=== PATIENT | female | born 1985 | race American Indian/Alaskan Native ===

== ENCOUNTER 2022-02-07 06:20 | Inpatient (IN) | payer MEDICAID, OTHER ==
[2022-02-05 12:58] LABS: Hemoglobin 9.8 gm/dl (10.1-14.3); Mean Corpuscular HGB Conc 33 % (30-34); Mean Corpuscular Volume 74 fl (79-97); Platelet Count 228 K/mm3 (140-440); Red Blood Count 4.07 M/mm3 (3.65-5.03); Red Cell Distribution Width 18.7 % (13.2-15.2)
[2022-02-05 13:17] LABS: BUN/Creatinine Ratio 15; Blood Urea Nitrogen 9 mg/dL (7-17); Calcium 8.9 mg/dL (8.4-10.2); Hemolysis Index 0
--- NOTE | 2022-02-07 09:11 | History and Physical Report ---
History of Present Illness Date of examination: 02/07/22 Date of admission: 02/07/22 08:50 Chief complaint: elective repeat section Previous c/sectionx2 Multiparity: desires surgical sterilization Past History Past Medical History: other (GDM,morbid obesity) Past Surgical History: section Social history: no significant social history - Obstetrical History Expected Date of Delivery: 02/13/22 Actual Gestation: 39 Week(s) 1 Day(s) : 3 Para: 2 Medications and Allergies Allergies Allergy/AdvReac Type Severity Reaction Status Date / Time No Known Allergies Allergy Verified 02/01/22 17:05 Home Medications Medication Instructions Recorded Confirmed Last Taken Type Aspirin [Adult Aspirin] 81 mg PO DAILY 02/01/22 02/01/22 Unknown History Valacyclovir HCl [Valacyclovir] 1,000 mg PO DAILY 02/01/22 02/01/22 Unknown History Ibuprofen [Motrin] 600 mg PO Q8H PRN #60 tablet 02/07/22 Unknown Rx oxyCODONE /ACETAMINOPHEN [Percocet 1 tab PO Q6HR PRN #20 tablet 02/07/22 Unkn own Rx 5/325] Review of Systems All systems: negative - Vital Signs Vital signs: Vital Signs Temp Pulse Resp BP Pulse Ox 97.9 F 91 H 20 125/86 99 02/05/22 12:40 02/05/22 12:40 02/05/22 12:40 02/05/22 12:40 02/05/22 12:40 Temp Pulse Resp BP Pulse Ox 97.9 F 91 H 20 125/86 99 02/05/22 12:40 02/05/22 12:40 02/05/22 12:40 02/05/22 12:40 02/05/22 12:40 - Physical Exam Breasts: Positive: deferred Cardiovascular: Regular rate Lungs: Positive: Clear to auscultation Abdomen: Positive: normal appearance, soft, normal bowel sounds Genitourinary (Female): Positive: normal external genitalia, normal perenium Vulva: both: normal Vagina: Positive: normal moisture Uterus: Positive: enlarged Anus/Rectum: Positive: normal perianal skin Deep Tendon Reflex Grade: Normal +2 - Obstetrical FHR: category 1 Results Result Diagrams: 02/07/22 09:22 02/05/22 12:40 All other labs normal. 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
[2022-02-07] MEDS ORDERED: FAMOTIDINE 20 MG/2 ML INJ IV SCH (09:30)
[2022-02-07] MEDS ORDERED: METOCLOPRAMIDE 10 MG/2 ML INJ IV SCH (09:30)
[2022-02-07] MEDS ORDERED: BICITRA ORAL LIQD 30ML PO SCH (09:30)
[2022-02-07] MEDS: LACTATED RINGERS 1,000 ML IV SCH ×2 (09:36→11:05)
[2022-02-07 10:00] LABS: Basophils % (Auto) 0.4 % (0.0-1.8); Eosinophils % (Auto) 0.4 % (0.0-4.3); Hemoglobin 9.9 gm/dl (10.1-14.3); Lymphocytes # (Auto) 1.6 K/mm3 (1.2-5.4); Mean Corpuscular HGB Conc 32 % (30-34); Mean Corpuscular Volume 74 fl (79-97); Monocytes # (Auto) 0.4 K/mm3 (0.0-0.8); Platelet Count 222 K/mm3 (140-440); Red Blood Count 4.21 M/mm3 (3.65-5.03); Red Cell Distribution Width 19.4 % (13.2-15.2)
[2022-02-07] MEDS ORDERED: METHYLERGONOVINE MALEATE 0.2 MG/ML VIAL IM PRN (10:00)
[2022-02-07] MEDS ORDERED: OXYTOCIN DRIP 30 UNITS/500 ML BAG IV SCH (10:00)
[2022-02-07] MEDS ORDERED: ACETAMINOPHEN 325 MG TAB PO PRN (10:00)
[2022-02-07] MEDS ORDERED: fentaNYL 100 MCG/2 ML INJ IV PRN (10:00)
[2022-02-07] MEDS ORDERED: OXYTOCIN 10 UNIT/1 ML INJ IM PRN (10:00)
[2022-02-07] MEDS ORDERED: miSOPROStol 200 MCG TAB PR PRN (10:00)
[2022-02-07] MEDS ORDERED: NALOXONE 0.4 MG/1 ML INJ IV PRN ×2 (10:00→13:01)
[2022-02-07] MEDS ORDERED: PROMETHAZINE 25 MG TAB PO PRN (10:00)
[2022-02-07] MEDS ORDERED: BUTORPHANOL 2 MG/1 ML INJ IV PRN ×2 (10:00)
[2022-02-07] MEDS ORDERED: LOPERAMIDE 2 MG CAP PO PRN (10:00)
[2022-02-07] MEDS ORDERED: LIDOCAINE (2%) 20 MG/1 ML VIAL 20 ML MDV INFILTRATI SCH (10:00)
[2022-02-07] MEDS ORDERED: NalbUPHINE 10 MG/1 ML INJ IV PRN (10:00)
[2022-02-07] MEDS ORDERED: CARBOPROST TROMETHAMINE 250 MCG/1 ML INJ IM PRN (10:00)
[2022-02-07] MEDS ORDERED: SODIUM CHLORIDE 0.9% 500 ML 500 ML IV SCH (10:00)
[2022-02-07] MEDS ORDERED: MINERAL OIL 30 ML ORAL LIQD PO PRN (10:00)
[2022-02-07] MEDS ORDERED: ePHEDrine SULFATE 50 MG/1 ML INJ IV PRN (10:00)
--- NOTE | 2022-02-07 11:42 | Procedure Note ---
OB Delivery Note - Delivery Date of Delivery: 02/07/22 Surgeon: JERILYN HONG - Section Preop diagnosis: desires sterilization Postop diagnosis: same section procedure: repeat low transverse, bilateral tubal ligation Disposition: PACU Complications: none Narrative: Preop diagnosis: IUP at 39.1 weeks, previous section x2 desiring elective repeat, Multiparity desiring permanent surgical sterilization Postop diagnosis: Same,delivered Procedure: Repeat low transverse section via Pfannenstiel incision with Mofied Ngozi Bilateral Tubal ligation Surgeon: Dr. Jerilyn Hong Anesthesia spinal Complications none EBL 500ml IV fluids 1100mL Urine output 25mL, clear Drains Ruth to gravity Findings: Viable male with weight 2690gms and 8/9, normal uterus tubes and ovaries bilaterally Procedure: Patient was consented in OB triage, taken to the operating room where she received excellent spinal anesthesia. She was then placed in the dorsal supine position with a leftward tilt. The abdomen was prepped and draped in a sterile fashion, and a timeout was verified. Adequate anesthesia was confirmed prior to the skin incision. A Pfannenstiel skin incision was made with a scalpel taken down to the underlying structures and the fascia was incised in the midline. The incision was extended laterally with curved Castellanos scissors, the superior and inferior aspects of the fascial incisions were grasped with Lianet clamps and the rectus muscles dissected sharply. The abdomen was entered bluntly in the midline carried down inferiorly with good visualization of the bladder. The vesicouterine peritoneum was tented with Spanish forceps and incised in the midline with Metzenbaum scissors and the vesicouterine peritoneum taken down sharply. The uterine incision was then made sharply with a scalpel. The inferior and superior aspect of the uterine incisions were extended bluntly, the baby's head was delivered atraumatically. The remainder of the delivery was uncomplicated, no nuchal cord. The cord was clamped and cut and baby handed to waiting NICU team. An intact placenta with three-vessel cord delivered manually. The uterus was then cleared of all clots and debris and the uterus exteriorized. The uterine incision was closed in 2 layers of 0 vicryl with excellent hemostasis. Attention then turned to the fallopian tubes which were suture ligated in the usual fashion with excellent hemostasis. The abdomen was then irrigated with warm normal saline and the uterus placed back into the abdomen atraumatically. A second look at the uterine incision assured hemostasis. The peritoneum was closed with 3-0 Vicryl, the rectus muscles approximated with 3-0 Vicryl, and the fascia closed with 0 Vicryl in the usual fashion. The subcuticular structures were closed with interrupted sutures of 3-0 Vicryl and the skin closed with 4-0 Monocryl. A pressure dressing was applied. All sponge needle and instrument counts were correct x2. There were no complications. Mom and baby stable to PACU. EBL 500 mL Jocelyn Hong MD
[2022-02-07] MEDS ORDERED: WATER FOR IRRIG STERILE 1,500 ML BOTTLE IR ONE (11:46)
[2022-02-07] MEDS ORDERED: ceFAZolin/STERILE WATER 2 GM/20 ML SYRINGE IV ONE (11:46)
[2022-02-07] MEDS ORDERED: SODIUM CHLORIDE 0.9% IRR 1,500 ML BOTTLE IR ONE (11:46)
[2022-02-07] MEDS ORDERED: PHENYLEPHRINE/NS 1,000 MCG/10 ML SYRINGE (OR USE) IV ONE (11:59)
[2022-02-07] MEDS ORDERED: ePHEDrine SULFATE 50 MG/1 ML INJ ONE (11:59)
[2022-02-07] MEDS ORDERED: dexAMETHasone 20 MG/5 ML VIAL ONE (11:59)
[2022-02-07] MEDS ORDERED: ONDANSETRON 4 MG/2 ML INJ ONE (11:59)
[2022-02-07] MEDS ORDERED: BUPIVACAINE/PF (0.5%) 5 MG/1 ML 30 ML VIAL INFILTRATI ONE (11:59)
[2022-02-07] MEDS ORDERED: LIDOCAINE MPF (2%) 20 MG/1 ML VIAL 5 ML ONE (11:59)
[2022-02-07] MEDS ORDERED: KETOROLAC 30 MG/1 ML INJ ONE (11:59)
--- NOTE | 2022-02-07 12:09 | Anesthesia Consultation ---
Anesthesia Consult and Med Hx Date of service: 02/07/22 - Airway Anesthetic Teeth Evaluation: Good ROM Head & Neck: Adequate Mental/Hyoid Distance: Adequate Mallampati Class: Class III Intubation Access Assessment: Possibly Difficult - Pulmonary Exam CTA: Yes - Cardiac Exam Cardiac Exam: RRR - Pre-Operative Health Status ASA Pre-Surgery Classification: ASA3 Proposed Anesthetic Plan: Spinal - Pulmonary Hx Asthma: No COPD: No - Cardiovascular System Hx Hypertension: No - Central Nervous System Hx Seizures: No Hx Psychiatric Problems: No - Endocrine Hx Renal Disease: No Hx End Stage Renal Disease: No Hx Non-Insulin Dependent Diabetes: Yes Hx Hypothyroidism: No Hx Hyperthyroidism: No - Hematic Hx Anemia: No Hx Sickle Cell Disease: No - Other Systems Hx Alcohol Use: No Hx Cancer: No Hx Obesity: Yes (BMI 45.7)
--- NOTE | 2022-02-07 12:10 | Anesthesia Day of Surgery ---
Anesthesia Day of Surgery - Day of Surgery Patient Examined: Yes Patient H&P Reviewed: Yes Patient is NPO: Yes
[2022-02-07] MEDS ORDERED: SENNOSIDES 8.6 MG TAB PO PRN (13:01)
[2022-02-07] MEDS ORDERED: IBUPROFEN 600 MG TAB PO PRN (13:01)
[2022-02-07] MEDS ORDERED: PROMETHAZINE 25 MG RECT SUPP PR PRN (13:01)
[2022-02-07] MEDS ORDERED: HYDROCORTISONE 25 MG RECTAL SUPP PR PRN (13:01)
[2022-02-07] MEDS ORDERED: ONDANSETRON 4 MG/2 ML INJ IV PRN (13:01)
[2022-02-07] MEDS ORDERED: MAGNESIUM HYDROXIDE (MOM) ORAL LIQD UDC PO PRN (13:01)
[2022-02-07] MEDS ORDERED: LANOLIN/ZINC/DIMETHICONE (LANSINOH) 7 GM TP PRN (13:01)
[2022-02-07] MEDS ORDERED: WITCH HAZEL/ GLYCERIN PAD TP PRN (13:01)
[2022-02-07] MEDS ORDERED: MORPHINE 4 MG/1 ML INJ IV PRN (13:01)
[2022-02-07] MEDS ORDERED: SIMETHICONE 80 MG CHEW TAB PO PRN (13:01)
[2022-02-07] MEDS ORDERED: MORPHINE 2 MG/1 ML INJ IV PRN (13:01)
[2022-02-07] MEDS ORDERED: KETOROLAC 30 MG/1 ML INJ IV PRN ×2 (13:01)
--- NOTE | 2022-02-07 13:05 | Progress Note ---
Spinal Anesthesia Block - Spinal Anesthesia Block Start Time: 11:40 Stop Time: 11:50 Performed by:: COREY ENAMORADO Procedure: Sitting, sterile Chloraprep prep/drape, 1% lidocaine 3ml skin local, 25G spinal needle + introducer at L3-4 not long enough, 22G pencil point needle, great difficulty passing needle through skin d/t and unable to get needle to advance through ligaments, 17G tuohy advanced to TELLY to air, 25G spinal needle passed through tuohy, + CSF, - Heme, [1.9 ml 0.5% bupivacaine + 10 mcg dexmedetomidine] injected, drape removed, patient positioned supine with left uterine displacement, and spinal level verified to be adequate prior to surgery.
[2022-02-07] MEDS: HYDROcodone/ACETAMINOPHEN 5-325 MG TAB PO PRN (21:48)
[2022-02-08 02:21] LABS: Hemoglobin 8.5 gm/dl (10.1-14.3)
[2022-02-08] MEDS: HYDROcodone/ACETAMINOPHEN 5-325 MG TAB PO PRN ×2 (05:38→22:04)
[2022-02-08] MEDS ORDERED: IRON DEXTRAN COMPLEX 100 MG/2 ML INJ IM SCH (09:00)
[2022-02-08] MEDS: FERROUS SULFATE 325 MG TAB PO SCH ×2 (10:10→22:04)
[2022-02-08] MEDS: IBUPROFEN 800 MG TAB PO PRN ×2 (10:10→16:14)
--- NOTE | 2022-02-08 10:55 | Post Anesthesia Evaluation ---
- Post Anesthesia Evaluation Patient Participated: Yes Airway Patent: Yes Stable Respiratory Function: Yes Nausea/Vomiting: No Temp > 96.8F: Yes Pain Manageable: Yes Adequeate Hydration: Yes Anesthesia Complications: No Block Receding Appropriately: Yes
--- NOTE | 2022-02-08 11:09 | Progress Note ---
Assessment and Plan POD #1 A: S/P LTCS Asymptomatic anemia P: Continue routine pp orders InFed IM x 1 Start Ferrous Sulfate tomm D/C home within 24-48 hrs if stable - Patient Problems (1) delivery delivered Current Visit: Yes Status: Acute Subjective - Subjective Date of service: 02/08/22 Principal diagnosis: S/P LTCS Patient reports: appetite normal, voiding normally, pain well controlled, flatus, ambulating normally : doing well, bottle feeding Objective - Vital Signs Latest vital signs: Vital Signs Temp Pulse Resp BP BP Pulse Ox Pulse Ox 02/08/22 10:10 16 02/08/22 09:20 100 02/08/22 08:15 97.8 F 84 20 116/65 96 02/08/22 06:35 18 02/08/22 05:38 18 02/08/22 05:27 98.1 F 67 20 98/57 96 02/08/22 02:09 18 02/08/22 01:09 18 02/08/22 00:50 98.4 F 79 18 108/61 96 02/07/22 22:48 18 02/07/22 21:48 18 02/07/22 21:00 100 02/07/22 20:50 98.1 F 82 20 124/69 96 02/07/22 16:28 98.0 F 74 21 127/84 97 02/07/22 14:30 99 02/07/22 14:00 97.6 F 82 19 110/65 100 02/07/22 13:45 77 13 123/75 100 02/07/22 13:30 84 19 123/81 100 02/07/22 13:25 78 18 109/67 99 02/07/22 13:20 62 11 L 117/76 100 02/07/22 13:14 97.4 F L 81 18 100 Intake and Output 02/07/22 02/08/22 02/08/22 22:59 06:59 14:59 Intake Total 1080 240 120 Output Total 1100 1200 Balance -20 -960 120 Intake: Oral 840 240 120 Intake, Free Water 240 Output: Urine 1100 1200 Indwelling Catheter 1100 700 Void 0 500 Other: Total, Intake Amount 240 120 120 Total, Output Amount 600 500 # Voids Indwelling Catheter 1 Void 1 1 - Exam Breasts: Present: normal Abdomen: Present: normal appearance, soft, normal bowel sounds Vulva: both: normal Uterus: Present: normal, firm, fundal height below umbilicus Extremities: Present: normal Incision: Present: normal, dry, intact - Labs Labs: Abnormal lab results 02/07/22 02/08/22 Range/Units 09:25 01:52 Hgb 8.5 L (10.1-14.3) gm/dl Hct 26.0 L (30.3-42.9) % Crossmatch See Detail
[2022-02-09] MEDS: IBUPROFEN 800 MG TAB PO PRN (04:03)
[2022-02-09 08:47] VITALS: BP 126/84
--- NOTE | 2022-02-09 09:46 | Progress Note ---
Assessment and Plan A: /postop day 2 S/P repeat low transverse section with BTL. Anemia. Obesity. Pregestational diabetes (diet controlled during ). P: Continue iron supplementation. Nurse to change steri strips this morning. Avoid sugars and processed foods. Anticipate discharge home tomorrow morning. Patient plans to follow up with her PCP soon after hospital discharge for management of diabetes. Subjective - Subjective Date of service: 02/09/22 Principal diagnosis: /postop day 2 S/P repeat LTCS with BTL Interval history: Patient has pregestational diabetes (diet controlled during ) which was diagnosed at first OB visit. States she plans to follow up with her PCP within first week after discharge. Patient reports: appetite normal, voiding normally, pain well controlled, flatus, ambulating normally, no dizzy ambulation, no nauseated Delta: doing well Objective - Vital Signs Latest vital signs: Vital Signs Temp Pulse Resp BP Pulse Ox Pulse Ox 02/09/22 08:08 98.8 F 95 H 18 126/84 99 02/09/22 07:45 100 02/09/22 04:03 18 02/09/22 00:53 98.1 F 89 20 115/74 94 02/08/22 22:04 18 02/08/22 20:00 100 02/08/22 16:53 98.0 F 18 104/51 02/08/22 10:10 16 Intake and Output 02/08/22 02/09/22 02/09/22 23:59 07:59 15:59 Intake Total 840 240 Balance 840 240 Intake: Oral 240 240 Intake, Free Water 600 Other: Total, Intake Amount 240 240 # Voids Void 2 1 - Exam Cardiovascular: Present: Regular rate, No murmurs Lungs: Present: Clear to auscultation Abdomen: Present: normal appearance, soft, normal bowel sounds. Absent: distention, tenderness, guarding, rigidity Uterus: Present: normal, firm, fundal height below umbilicus (fundus firm and midline at 2 FB below umbilicus). Absent: bogginess, tenderness Extremities: Absent: tenderness Incision: Present: intact
[2022-02-09] MEDS: HYDROcodone/ACETAMINOPHEN 5-325 MG TAB PO PRN (10:08)
[2022-02-09] MEDS: FERROUS SULFATE 325 MG TAB PO SCH (10:08)
--- NOTE | 2022-02-09 12:35 | Event Note ---
Date: 02/09/22 Patient requests discharge home this afternoon since baby has just been discharged. Dr. Miller states she is OK with patient being discharged home today. Discussed with patient /postop discharge instructions and warning signs. Care of incision and activity restrictions discussed with patient. Advised patient to continue taking her vitamin and iron supplement at home. Advised patient to avoid intercourse, lifting, driving, stair climbing, housework, tub baths (patient may take showers). Advised patient to follow up at [facility] in 1 week and to follow up with her PCP in 1 week also (due to her diabetes). Patient voiced understanding of all instructions.
--- NOTE | 2022-02-09 12:40 | Discharge Summary ---
Providers - Providers Date of Admission: 02/07/22 08:50 Date of discharge: 02/09/22 Attending physician: JERILYN HONG MD Primary care physician: [employer] Hospitalization Reason for admission: section Delivery: Procedure: bilateral tubal ligation, repeat low transverse Incision: dry, intact complications: none Discharge diagnosis: IUP at term delivered baby: male Pertinent studies: Labs Hospital course: Stable hospital course Condition at discharge: Good Disposition: 01 HOME / SELF CARE / HOMELESS - Discharge Diagnoses (1) Term delivered Status: Acute (2) Anemia Status: Acute Plan - Discharge Medications Prescriptions: Ibuprofen [Motrin] 600 mg PO Q8H PRN #60 tablet PRN Reason: Pain oxyCODONE /ACETAMINOPHEN [Percocet 5/325] 1 tab PO Q6HR PRN #20 tablet PRN Reason: Pain - Provider Discharge Summary Activity: routine, no sex for 6 weeks, no heavy lifting 4 weeks, no strenuous exercise Diet: routine Instructions: routine Additional instructions: Continue taking your vitamin and iron supplement at home. Follow up at [facility] in 1 week. Follow up at your PCP office in 1 week. Call your doctor immediately for: * Fever > 100.5 * Heavy vaginal bleeding ( >1 pad per hour) * Severe persistent headache * Shortness of breath * Reddened, hot, painful area to leg or breast * Drainage or odor from incision. * Keep incision clean and dry at all times and follow doctor's instructions regarding bathing/showering - Follow up plan Follow up: GIO JOHNSON CNM [Advanced Practice Nurse] - 7 Days
== END 2022-02-09 14:17 | disposition home or self-care (01) | DRG 766 ==
LOC: APU 08:50 → OB 14:45
PROVIDERS: ADMIT Obstetrics & Gynecology; ATTEND Obstetrics & Gynecology
PROC: 0UL70ZZ Occlusion of Bilateral Fallopian Tubes, Open Approach (ICD-10-PCS; principal; 2022-02-07)
PROC: 10D00Z1 Extraction of Products of Conception, Low, Open Approach (ICD-10-PCS; 2022-02-07)
DX: O34.211 Maternal care for low transverse scar from previous cesarean delivery (principal); O99.214 Obesity complicating childbirth; Z20.822 Contact with and (suspected) exposure to COVID-19; Z37.0 Single live birth; Z3A.39 39 weeks gestation of pregnancy; O90.81 Anemia of the puerperium; Z30.2 Encounter for sterilization; O24.429 Gestational diabetes mellitus in childbirth, unspecified control
CPT/HCPCS: 36415; 80048; 85014; 85018; 85025; 85027; 86592; 86850; 86900; 86901; 86920; 88302; G0378; J3490; J7121; J0690; J1100; J1750; J1885; J2370; J2405; J2765; J7120; U0003